=== PATIENT | male | born 1990 | race Caucasian/White ===

== ENCOUNTER 2023-10-14 07:29 | Emergency (ER) | payer OTHER, SELFPAY ==
[2023-10-14 07:37] VITALS: BP 125/92
--- NOTE | 2023-10-14 08:32 | ED.SKININJ ---
HPI-Injury
General
Chief Complaint: Self Inflicted Injury
Source: patient
Exam Limitations: none
Time Seen by Provider: 10/14/23 08:16
Travel History
Have you had any contact with someone who has COVID-19?: No
Do you have any symptoms of coronavirus? Fever > 100 degrees, chills, cough, shortness of breath, sore throat, loss of taste or smell, muscle aches, or headache?: No
History of Present Illness-Injury
Initial Injury comments:
33-year-old male presents with self-inflicted laceration to left elbow he sustained Sunday night. He is a cutter. This is not an attempt to hurt himself. He notes one of the cuts just will not stop bleeding. Last tetanus is within 5 years. No
other complaints at this time
Past History
Past History
ED Past Medical History: Psychiatric (Bipolar)
ED Past Surgical History: None
Social History
Tobacco: Vaping
Alcohol: None
Personal: Single
Living: alone
Employment: Employed
Phy Exam
Physical Exam
Physical Exam:
General: Well-appearing male no acute respiratory distress
Skin: Multiple mainly superficial self-inflicted lacerations left upper arm and forearm. 1 on the proximal forearm near the elbow measures 2 cm does have mild bleeding associated with it. No surrounding erythema no tendon involvement
Course
Vital Signs
Initial and Last Documented VS:
Initial Vital Signs
Temp Pulse Resp BP Pulse Ox
98.2 F 95 18 125/92 99
10/14/23 07:37 10/14/23 07:37 10/14/23 07:37 10/14/23 07:37 10/14/23 07:37
Last Documented Vital Signs
Temp Pulse Resp BP Pulse Ox
98.2 F 95 18 125/92 99
10/14/23 07:37 10/14/23 07:37 10/14/23 07:37 10/14/23 07:37 10/14/23 07:37
MDM/Problems Addressed
Differential Diagnosis Includes:
Self-inflicted laceration left upper arm 1 that will not stop bleeding. This was irrigated with saline anesthetized with 1% lidocaine with epinephrine and closed with 5-0 Prolene sutures. 3 sutures were required to provide wound edge approximation
and hemostasis. No indication to update tetanus vaccine as he has had 1 within 5 years. Patient denies thoughts of harming self or others. Stable for discharge
*Critical Care Note
Total Time (30-74mins, 75-104mins- exclusive of procedures): Not Applicable
ED Attending Note
-
Portions of this chart may have been created with voice recognition software.� Occasional wrong word or��sound alike� substitutions may have occurred due to the inherent limitations of voice recognition software.
Discharge Plan
Departure
Patient Disposition: Home (Routine Discharge)
Date of Disposition: 10/14/23
Time of Disposition: 08:34
Patient with high blood pressure during this ER visit?: No
Discharge Problem:
Laceration
Instructions: Laceration Repair With Stitches (DC)
Prescriptions:
No Action
ibuprofen 800 mg tablet
800 mg PO QIDPRN PRN (Reason: pain, fever) Qty: 30 0RF
Activity Restrictions/Additional Instructions:
's have sutures removed in 10 to 14 days. Keep clean otherwise
Discharge Date and Time
Print Language: CROATIAN
== END 2023-10-14 08:57 | disposition home or self-care (01) ==
LOC: EMR 07:29
PROVIDERS: EMERGENCY PHYSICIAN Emergency Medicine
DX: S51.012A Laceration without foreign body of left elbow, initial encounter (principal); X58.XXXA Exposure to other specified factors, initial encounter; F31.9 Bipolar disorder, unspecified; F17.290 Nicotine dependence, other tobacco product, uncomplicated
CPT/HCPCS: 99282

== ENCOUNTER 2023-11-07 20:59 | Emergency (ER) | payer OTHER, SELFPAY ==
[2023-11-07 21:02] VITALS: BP 121/78
--- NOTE | 2023-11-07 22:19 | ED.SKININJ ---
HPI-Injury
<Damion Mcknight DO, Resident - Last Filed: 11/07/23 22:34>
General
Chief Complaint: Skin Surface Trauma
Source: patient
Exam Limitations: none
Time Seen by Provider: 11/07/23 21:13
History of Present Illness-Injury
Initial Injury comments:
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 He rates the pain a 7/10. He reports being able to move it slightly but is unable to sense touch at the finger pad of the index finger. He is stable.
He has not taken any medication prior to arrival.
Past History
<Damion Mcknight DO, Resident - Last Filed: 11/07/23 22:34>
Past History
ED Past Medical History: Psychiatric (Bipolar)
ED Past Surgical History: None
Social History
Tobacco: Vaping
Alcohol: None
Personal: Single
Living: alone
Employment: Employed
Review of Systems
<Damion Mcknight DO, Resident - Last Filed: 11/07/23 22:34>
Review of Systems
Constitutional: Reports no symptoms
Skin: Reports other (skin flap on index finger on L hand)
Neurological: Reports numbness (unable to feel touch on L index finger pad)
Psychiatric: Reports no symptoms
Skin Exam
<Damion Mcknight DO, Resident - Last Filed: 11/07/23 22:34>
Laceration
Left Second Finger(s):
Length in cm: 1.5
Orientation: diagonal
Any active bleeding?: no active bleeding
Range of motion: limited
Phy Exam
<Damion Mcknight DO, Resident - Last Filed: 11/07/23 22:34>
General Physical Exam
General Presentation: mild distress
General age: appears stated age
General Skin: warm and dry
General Habitus: normal
General Mental: alert
General Hydration: appears well hydrated
Musculoskeletal Exam
Musculoskeletal Exam: other (decreased ROM with flexion of L index finger)
Skin Exam
Skin Exam: erythema, laceration, redness and tenderness
Course
<Damion Mcknight DO, Resident - Last Filed: 11/07/23 22:34>
Orders/Labs/Results
Orders:
Orders
11/07/23 21:09
Finger(s)/Thumb 2 View Lt [CR Finger(s)/thumb Min 2 Vw Lt] Urgent
Comment:
Reason For Exam: punctured with a spinning drill bit
Indicate Which Finger:: Index Finger
11/07/23 22:29
Splints/Slings/Crut- Treatment ONCE
Ibuprofen [Motrin] 600 mg PO NOW STA
Tetanus/Diphth/Acelpertussis [Adacel] 0.5 ml IM .ONCE ONE
11/07/23 22:30
Cephalexin Monohydrate [Keflex] 500 mg PO NOW STA
Vital Signs
Initial and Last Documented VS:
Initial Vital Signs
Temp Pulse BP Pulse Ox
98.2 F 108 121/78 98
11/07/23 21:02 11/07/23 21:02 11/07/23 21:02 11/07/23 21:02
Last Documented Vital Signs
Temp Pulse BP Pulse Ox
98.2 F 108 121/78 98
11/07/23 21:02 11/07/23 21:02 11/07/23 21:02 11/07/23 21:02
<Anthony Morrison DO - Last Filed: 11/07/23 22:41>
Orders/Labs/Results
Orders:
Orders
11/07/23 21:09
Finger(s)/Thumb 2 View Lt [CR Finger(s)/thumb Min 2 Vw Lt] Urgent
Comment:
Reason For Exam: punctured with a spinning drill bit
Indicate Which Finger:: Index Finger
11/07/23 22:29
Splints/Slings/Crut- Treatment ONCE
Ibuprofen [Motrin] 600 mg PO NOW STA
Tetanus/Diphth/Acelpertussis [Adacel] 0.5 ml IM .ONCE ONE
11/07/23 22:30
Cephalexin Monohydrate [Keflex] 500 mg PO NOW STA
Vital Signs
Initial and Last Documented VS:
Initial Vital Signs
Temp Pulse BP Pulse Ox
98.2 F 108 121/78 98
11/07/23 21:02 11/07/23 21:02 11/07/23 21:02 11/07/23 21:02
Last Documented Vital Signs
Temp Pulse BP Pulse Ox
98.2 F 108 121/78 98
11/07/23 21:02 11/07/23 21:02 11/07/23 21:02 11/07/23 21:02
Procedures
<Anthony Morrison DO - Last Filed: 11/07/23 22:41>
Splinting/Sling Placement
Right Finger:
Procedure completed by: tech
Pre-splint extermity exam: neurovascular intact
Type of splint: aluminium finger
<Damion Mcknight DO, Resident - Last Filed: 11/07/23 22:34>
MDM/Problems Addressed
Differential Diagnosis Includes:
finger laceration
MDM/Problems Addressed:
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 Patient is stable. Wound irrigated and splinted. Tetanus shot administered. Finger Xray shows soft tissue laceration of the index finger. Given
script for Keflex for infection coverage.
Chronic conditions affecting care:
NA
Acute Exacerbation and/or Progression of Chronic Illness:
NA
<Shuchi Juan Luis, DO, Resident - Last Filed: 11/07/23 22:34>
*Radiology
Radiology exam reviewed: radiology read reviewed
*Pulse Oximetry
Patient hypoxic: no
*EKG
Interpreted by ED Provider?: NA
*Administrative Supervisor Interpretation
Rate: Administrative Supervisor- N/A
*Critical Care Note
Total Time (30-74mins, 75-104mins- exclusive of procedures): Not Applicable
ED Attending Note
<Damion Mcknight DO, Resident - Last Filed: 11/07/23 22:34>
-
Portions of this chart may have been created with voice recognition software.� Occasional wrong word or��sound alike� substitutions may have occurred due to the inherent limitations of voice recognition software.
<Anthony Morrison DO - Last Filed: 11/07/23 22:41>
ED Attending Note
Patient seen and examined by attending physician: Yes
I performed a history and physical exam of patient and discussed management with resident, I reviewed resident's note and agree with documented findings and plan of care.: Yes
ED Attending Note:
Seen with resident examined independently soft tissue injury to the finger with a drill, x-ray noted, does have a little bit difficulty flexing the DIP may be due to pain, plan we wound care update tetanus antibiotics follow-up with orthopedic hand
Discharge Plan
Departure
Patient Disposition: Home (Routine Discharge)
Date of Disposition: 11/07/23
Time of Disposition: 22:30
Patient with high blood pressure during this ER visit?: No
Condition: Good
Discharge Problem:
Injury of finger
Instructions: Wound Care (DC)
Prescriptions:
New
cephalexin 500 mg capsule
500 mg PO Q8H 7 Days Qty: 21 0RF
ibuprofen 600 mg tablet
600 mg PO Q8H PRN (Reason: Pain) Qty: 20 0RF
No Action
ibuprofen 800 mg tablet
800 mg PO QIDPRN PRN (Reason: pain, fever) Qty: 30 0RF
Referrals:
NONE,* [Family Provider] -
Dk Rouse MD [Active] - Next open appointment
Interventions
Interventions:
*Risk Screen - Suicide Last Done: 11/07/23 21:04
*General Assessment Last Done: 11/07/23 21:04
*Neglect/Abuse Screening Last Done: 11/07/23 21:04
ED- Fall Risk Assessment Last Done: 11/07/23 21:04
*ED COVID-19 Vaccine History Last Done: 11/07/23 21:04
ED-Skin Assessment Last Done: 11/07/23 22:22
Discharge Date and Time
Print Language: SALVADOREAN
[2023-11-07] MEDS: MOTRIN 600 MG PO (22:38)
[2023-11-07] MEDS: KEFLEX 500 MG PO (22:39)
[2023-11-07] MEDS: ADACEL 0.5 ML IM (22:39)
== END 2023-11-07 22:42 | disposition home or self-care (01) ==
LOC: EMR 20:59
PROVIDERS: EMERGENCY PHYSICIAN Emergency Medicine
DX: S61.211A Laceration without foreign body of left index finger without damage to nail, initial encounter (principal); W29.8XXA Contact with other powered hand tools and household machinery, initial encounter; F17.290 Nicotine dependence, other tobacco product, uncomplicated; Z23 Encounter for immunization
CPT/HCPCS: 99283; 90471; 29130; 73140; 90715

== ENCOUNTER 2024-05-15 19:39 | Emergency (ER) | payer OTHER, SELFPAY ==
[2024-05-15 19:42] VITALS: BP 143/97
[2024-05-15 20:02] LABS: % Basophils 0.3 % (0-2); % Eosinophils 0.1 % (0-6); % Immature Granulocytes 0.3 % (0-0.5); % Lymphocytes 25.5 % (20.5-51.1); % Monocytes 6.6 % (1.7-9.3); % Neutrophils 67.2 % (42.2-75.2); Absolute Lymphocytes 2.2 10^3/uL (1.2-3.4); Absolute Monocytes 0.6 10^3/uL (0.1-0.6); Absolute Neutrophils 5.8 10^3/uL (1.4-6.5); Hematocrit 46.4 % (39.0-52.0); Hemoglobin 17.1 g/dL (13.0-18.0); Mean Corp Hgb Conc. 36.9 g/dL (33.0-37.0); Mean Corpuscular Hgb 32.2 pg (27.0-31.0); Mean Corpuscular Volume 87.4 fL (80.0-94.0); Mean Platelet Volume 9.3 fL (7.4-10.4); Nucleated Red Blood Cells % 0 % (-); Platelet Count 246 10^3/uL (130-400); Red Blood Cell Count 5.31 10^6/uL (4.70-6.10); White Blood Cell Count 8.7 10^3/uL (4.8-10.8)
[2024-05-15 20:17] LABS: ALT (SGPT) 17 U/L (0-50); AST (SGOT) 25 U/L (17-59); Alkaline Phosphatase 65 U/L (38-126); Blood Urea Nitrogen 15 mg/dl (9-20); Calcium 10.3 mg/dl (8.4-10.2); Carbon Dioxide 16 mmol/L (22-30); Chloride 109 mmol/L (98-107); Glucose 121 mg/dl (70-99); Potassium 3.3 mmol/L (3.5-5.1); Sodium 140 mmol/L (135-145); Total Bilirubin 0.6 mg/dl (0.2-1.3); eGFR > 60.00
[2024-05-15 20:26] LABS: Troponin I < 0.012 ng/ml
== END 2024-05-15 23:13 ==
LOC: EMR 19:39
PROVIDERS: EMERGENCY PHYSICIAN Emergency Medicine
DX: R07.9 Chest pain, unspecified (principal); Z53.21 Procedure and treatment not carried out due to patient leaving prior to being seen by health care provider
CPT/HCPCS: 80053; 84484; 85025; 93005